=== PATIENT | female | born 1965 | race Caucasian/White ===

== ENCOUNTER 2025-06-25 13:19 | Outpatient (REF) | payer MEDICAID, SELFPAY ==
[2025-06-25 21:08] LABS: ALT 30 U/L (14-59); AST 26 U/L (15-37); Albumin 4.3 g/dL (3.4-5.0); Alkaline Phosphatase 39 U/L (46-116); Anion Gap 11.2 mmol/L (3-11); BUN 11 mg/dL (7-18); Bilirubin, Total 1.1 mg/dL (0.2-1.0); CO2 23.8 mmol/L (21.0-32.0); Calcium 8.9 mg/dL (8.5-10.1); Chloride 102 mmol/L (98-107); Estimated GFR 84.82 (mL/min/1.73m2); Glucose 96 mg/dL (74-106); Potassium 3.9 mmol/L (3.5-5.1); Sodium 137 mmol/L (136-145); TSH 1.50 uIU/mL (0.36-3.74); Total Protein 7.5 g/dL (6.4-8.2)
[2025-06-26 11:18] LABS: Calculated LDL 88 mg/dL (<100); Cholesterol 184 mg/dL (<200); HDL Cholesterol 85 mg/dL (>or=50); Triglyceride 57 mg/dL (<150)
== END 2025-06-25 13:20 | disposition home or self-care (01) ==
LOC: NCHCN 13:19
PROVIDERS: PCP Nurse Practitioner Family; Visit Provider Nurse Practitioner Family
DX: E78.5 Hyperlipidemia, unspecified (principal); E03.9 Hypothyroidism, unspecified
CPT/HCPCS: 80053; 80061; 84443

== ENCOUNTER 2025-07-09 15:29 | Outpatient (REF) | payer MEDICAID, SELFPAY ==
[2025-07-09 19:19] LABS: Abs Immature Grans 0.01 10^3/uL (0.0-0.06); ESR 3 mm/hr (0-30); HCT 39.8 % (36.0-46.0); HGB 13.6 g/dL (11.2-15.7); Immature Grans % 0.2 %; MCH 30.2 pg (27.0-33.0); MCHC 34.2 % (32.0-36.0); MCV 88 fL (80-95); MPV 9.3 fL (8.0-11.0); Platelet Count 202 10^3/uL (130-400); RBC 4.50 10^6/uL (3.93-5.22); RDW 12.8 % (11.7-14.6); RDW-SD 41.6 fL; WBC 5.18 10^3/uL (4.4-10.8)
== END 2025-07-09 15:30 | disposition home or self-care (01) ==
LOC: NCHCN 15:29
PROVIDERS: PCP Nurse Practitioner Family; Visit Provider Nurse Practitioner Family
DX: R91.8 Other nonspecific abnormal finding of lung field (principal)
CPT/HCPCS: 85652; 85025

== ENCOUNTER 2025-09-06 03:29 | Outpatient (CLI) | payer MEDICAID, SELFPAY ==
[2025-09-06] MEDS: Inhaler, Assist Device 1 EACH MC (09:08)
[2025-09-06] MEDS: Levalbuterol HFA 15 GM INH 4 PUFF IH (09:14)
--- NOTE | 2025-09-10 07:51 | W.PFT ---
Date of service: 09/06/25 Time of Service: 08:04 Pulmonary Function Test Result Indications: Pulmonary infiltrates Impression 1. Good patient effort was noted. ATS standards for reproducibility were met. 2. Normal spirometry. 3. Following the administration of a bronchodilator there was not a significant response 4. TLC was normal. No evidence of restrictive lung disease 5. DLCO was normal indicating normal alveolar gas exchange
== END 2025-09-06 03:30 | disposition home or self-care (01) ==
LOC: RT 03:29
PROVIDERS: PCP Nurse Practitioner Family; Visit Provider Internal Medicine Pulmonary Disease
DX: R91.8 Other nonspecific abnormal finding of lung field (principal)
CPT/HCPCS: 94060; 94726; 94729

== ENCOUNTER 2025-09-06 14:13 | Outpatient (CLI) | payer MEDICAID, SELFPAY ==
[2025-09-06 09:32] LABS: Abs Immature Grans 0.02 10^3/uL (0.0-0.06); HCT 40.7 % (36.0-46.0); HGB 14.0 g/dL (11.2-15.7); Immature Grans % 0.3 %; MCH 30.9 pg (27.0-33.0); MCHC 34.4 % (32.0-36.0); MCV 90 fL (80-95); MPV 8.6 fL (8.0-11.0); Platelet Count 184 10^3/uL (130-400); RBC 4.53 10^6/uL (3.93-5.22); RDW 13.2 % (11.7-14.6); RDW-SD 44.0 fL; WBC 6.11 10^3/uL (4.4-10.8)
[2025-09-06 09:36] LABS: ESR < 1 mm/hr (0-30)
[2025-09-06 10:17] LABS: C-Reactive Protein < 0.50 mg/dL (<or=0.5)
== END 2025-09-06 14:14 | disposition home or self-care (01) ==
LOC: LBO 14:13
PROVIDERS: PCP Nurse Practitioner Family; Visit Provider Internal Medicine Pulmonary Disease
DX: R91.8 Other nonspecific abnormal finding of lung field (principal); R06.00 Dyspnea, unspecified
CPT/HCPCS: 36415; 85652; 85025; 86038; 86140

== ENCOUNTER 2025-09-09 11:08 | Day surgery (SDC) | payer MEDICAID, SELFPAY ==
[2025-09-09] VITALS (19 sets, daily range): BP systolic 92–154; BP diastolic 63–114; PULSE 74–94; RESP 8–25; TEMP 36.2–36.6; O2SAT 88–100; BMI 32.0
[2025-09-09] MEDS: Lactated Ringers 1,000 ML 30 ML IV (11:58)
--- NOTE | 2025-09-09 12:15 | W.ANESPRE ---
General Info Date of Service Date Performed: 09/09/25 Height: 5 ft 2 in Weight: 79.379 kg Body Mass Index (BMI): 32.0 Surgical Procedure: Operation Date: 09/09/25 13:10 Proposed Procedure Side Surgeon p Bronchoscopy Luis Avery MD Actual Procedure Side Surgeon p Bronchoscopy Luis Avery MD Pre-Op Diagnosis Post-Op Diagnosis Pulmonary infiltrates Meds Allergies and Home Medications Allergies Allergy/AdvReac Type Severity Reaction Status Date / Time amoxicillin Allergy Intermediate rash Verified 09/09/25 11:43 Sulfa (Sulfonamide Allergy Intermediate rash or gi Verified 09/09/25 11:43 Antibiotics) Penicillins Allergy Unknown Other (See Verified 09/09/25 11:43 Comment) Home Medication ?Medication ?Instructions ?Recorded albuterol sulfate 90 mcg/actuation 2 puff inhalation Q6H PRN 10/19/24 aerosol inhaler shortness of breath or wheezing #6.7 grams atorvastatin 20 mg tablet 20 mg PO DAILY 10/19/24 inhalational spacing device #1 ea 10/19/24 (Aerochamber MV spacer) levothyroxine 75 mcg tablet 75 mcg PO DAILY 10/19/24 diazepam 5 mg tablet (Valium) 5 mg PO DAILY PRN 08/30/25 estradiol 0.1 mg/24 hr semiweekly 1 patch transdermal ONCE 08/30/25 transdermal patch (Lyllana) omeprazole 20 mg capsule,delayed 20 mg PO DAILY 08/30/25 release valacyclovir 1 gram tablet 1,000 mg PO BID PRN 08/30/25 bupropion HCl 300 mg 24 hr tablet, 300 mg PO .COMPLEX 09/03/25 extended release fluticasone propionate 50 1 spray intranasal DAILY PRN 09/03/25 mcg/actuation nasal spray,suspension (Allergy Relief (fluticasone)) Current Visit Medications: Current Medications Generic Name Dose Route Start Last Admin Trade Name Freq PRN Reason Stop Dose Admin Albuterol Sulfate 2.5 mg 09/09/25 06:00 Albuterol 2.5 Mg/3 Ml Inh Soln Vial UPD 09/09/25 16:00 DIRECTED DILCIA Ringer's Solution 1,000 mls @ 30 mls/hr 09/09/25 06:00 09/09/25 11:58 IV 09/09/25 23:59 30 mls/hr INFUSION DILCIA Administration IV Miscellaneous Supplies 1 each 09/09/25 06:00 Iv Access IV 09/09/25 23:59 DIRECTED DILCIA Lidocaine HCl 2 ml 09/09/25 06:00 Lidocaine 2% Pres-Free 2 Ml Vial IH 09/09/25 16:00 DIRECTED DILCIA Sodium Chloride 0 ml 09/09/25 06:00 Normal Saline Flush 10 Ml Syr IV 09/09/25 23:59 PRN PRN Sodium Chloride 0 ml 09/09/25 06:00 Normal Saline 10 Ml Vial IJ 09/09/25 23:59 DIRECTED PRN Sterile Water 0 ml 09/09/25 06:00 Water,Injection,Sterile 10 Ml Vial IJ 09/09/25 23:59 DIRECTED PRN PFSH Active Problems Active Problems: Problem Status Onset Code Pulmonary infiltrates Acute R91.8 Hypercholesterolemia Acute E78.00 Anxiety Chronic F41.9 Hypothyroidism Chronic E03.9 Panic disorder Acute F41.0 H/O gastroesophageal reflux (GERD) Acute Z87.19 Irritable bowel syndrome Chronic K58.9 Hyperlipemia Acute E78.5 Ground glass opacity present on imaging of lung Acute R91.8 Supraclavicular lymphadenopathy Acute R59.0 Mass in neck Acute R22.1 Menopausal flushing Acute N95.1 Obesity Chronic E66.9 Surgical History Surgical History H/O uterine ablation History of carpal tunnel surgery S/P right knee arthroscopy S/P left knee arthroscopy History of total abdominal hysterectomy History of bilateral ligation of fallopian tubes Tobacco Smoking/Tobacco Use Status: Former Tobacco Use Passive smoking exposure: No Alcohol Alcohol Intake: current Alcohol intake frequency: 0-2 drinks per day Alcohol type: wine Substance Use Substance use: Never Substance use type: does not use Vital Signs and Lab Results Vital Signs Most Recent Vital Signs in EMR: Most Recent Vital Signs Temp Pulse Resp BP Pulse Ox 36.2 C L 75 16 154/96 H 99 09/09/25 11:34 09/09/25 11:34 09/09/25 11:34 09/09/25 11:47 09/09/25 11:34 Lab Results Complete Blood Count: WBC, (4.4-10.8) 6.11 10^3/uL 09/06/25, 09:20 RBC, (3.93-5.22) 4.53 10^6/uL 09/06/25, 09:20 Hgb, (11.2-15.7) 14.0 g/dL 09/06/25, 09:20 Hct, (36.0-46.0) 40.7 % 09/06/25, 09:20 Plt Count, (130-400) 184 10^3/uL 09/06/25, 09:20 Complete Metabolic Panel: C-Reactive Protein, (<or=0.5) < 0.50 mg/dL 09/06/25, 09:20 Anesthesia Assessment and Plan Anesthesia History Personal History: No History of Anesthesia Complications Family History: No Family History of Anesthesia Complications Exercise Tolerance Exercise Tolerance: Metabolic Equivalents>4 Cardiac & Pulmonary Exam Cardiac Exam: Normal S1/S2 Heart Sounds Pulmonary Exam: Clear Bilateral Breath Sounds Implantable Cardiac Device Does patient have a Pacemaker or an ICD?: No Airway Exam Known Difficult Airway: No Mallampati Class: 2 Mouth Opening: Normal (> 3cm) Thyromental Distance: Greater than 3 cm Neck Range of Motion: Full ROM Neck Circumference: Normal Teeth Condition: Normal Dentition ASA Classification ASA Score: ASA 2 Emergency Case?: No NPO Status NPO Status: NPO Clears >2 hours, Solids >8 hours Anesthesia Plan Resuscitation Status: Full Code Anesthesia Technique: General Anesthesia Airway Planned: LMA Monitors Used: Standard Monitors Preoperative Comments:: 59 yo for bronch due to infiltrates Sig PMHx: RAD (albuterol - rare use), GERD (omeprazole. well controlled), hypothyroid (hypothyroid), anxiety. Former smoker. occ EtOH.
[2025-09-09] MEDS: Lidocaine 2% Pres-Free 2 ML VIAL IH (12:23)
[2025-09-09] MEDS: Albuterol 2.5 MG/3 ML INH SOLN VIAL UPD (12:23)
[2025-09-09] MEDS: Lidocaine 1% Pres-Free 5 ML VIAL (12:50)
--- NOTE | 2025-09-09 12:52 | PAPNONF_PTH ---
PATIENT: Sharifa Kathleen LOC: [facility] U#:[id number] AGE/SX: 59/F ROOM: RE09/09/[address]: Luis Avery : 1965 BED: DIS: 09/09/2025 SPEC #: [id number] RECD: 09/09/25 18:02 STATUS: ANGELINE REAlbino #: [id number] KYLEE: 09/09/25 12:[address]: Luis Avery DEPT: [facility] Cytology RECD BY: Lynette Cornelius ENTERED: 09/09/25 18:04 SP TYPE: ALLEN EPPERSON DR: Rea Felix Tissues: 1 - BODY FLUID CYTO(NOT S/U/N/EM)[facility] 2 - BODY FLUID CYTO(NOT S/U/N/EM)[facility] Procedures: BODY FLUID CYTO(NOT SPU/UR/NIP/ENDOM)[facility] Comments: [id number] (TV=10 ml BOTH SAMPLES, SENT FRESH) (REFRIGERATED)
--- NOTE | 2025-09-09 13:05 | W.PM.OP ---
Operative Note Operative Note PRE-OP DIAGNOSIS: Pulmonary infiltrates POST-OP DIAGNOSIS: same PROCEDURE: Bronchoscopy with BAL SURGEON: Luis Avery ANESTHESIA TYPE: General LMA/ETT (Under the direction the anesthesiology team and as per anesthesia record) Refer to Anesthesia Record PATHOLOGY: other (Bronchoalveolar lavage was obtained in the posterior segment of the PAVAN and posterior segment of the RUL. Samples were sent for bacterial/fungal/afb cultures, cell count, and cytopatholgy. Biopsies taken: none) Procedure Description: The risks (including bleeding, respiratory failure, and pneumothorax), benefits, and alternatives of the procedure were discussed with the patient and consent was obtained.? A Time Out was held and the above information confirmed. Following the induction of general anesthesia, the patient was ventilation through an LMA. The bronchoscope was passed through the LMA. The vocal cords were visualized and lidocaine was topically placed onto the cords. The cords were normal. The scope was then passed into the trachea.?Additional lidocaine was used topically.? A full endobronchial examination was performed.? There was diffuse mild-moderate, endobronchial erythema bilaterally. No endobronchial lesions or masses were seen. There were minimal, clear secretions bilaterally. 100 mL of saline was injected into the posterior segment of the RUL and ~20 mL was aspirated. 100 mL of saline was injected into the posterior segment of the PAVAN and ~ 25 mL was aspirated. The Patient was taken to the Endoscopy Recovery area in satisfactory condition. Date of Procedure: 09/09/25
--- NOTE | 2025-09-09 13:18 | W.ANESPOSTOP ---
Postoperative Evaluation Date, Time and Location Date Performed: 09/09/25 Time Performed: 13:18 Patient Location: PACU Vital Signs Most Recent Imported Vital Signs: Most Recent Vital Signs Temp Pulse Resp BP Pulse Ox 36.6 C 94 H 23 98/72 L 92 09/09/25 13:15 09/09/25 13:15 09/09/25 13:15 09/09/25 13:11 09/09/25 13:15 Pain Score Most Recent Pain Score: Most Recent Pain Score Pain Level 0 09/09/25 13:15 Assessment Mental Status: Awake (Alert & Oriented to Patient Baseline) Airway and Respiratory Function: Patent airway with normal (patient baseline) respiratory exam Cardiovascular Function: Hemodynamically Stable Hydration Status: Adequately Hydrated Nausea & Vomiting: No Nausea or Vomiting Pain: Pt. Denies Any Pain Peripheral Nerve Block: Patient did not receive a nerve block
[2025-09-09 22:14] LABS: Eosinophils Fluid Relative 1 % ((See Note)); Lymphocytes Fluid Relative 11 % ((See Note)); Mono/Macrophage Fluid Relative 57 % ((See Note)); Neutrophils Fluid Relative 10 % ((See Note)); Other Cells Fluid Relative 21 % ((See Note))
[2025-09-09 22:15] LABS: Lymphocytes Fluid Relative 3 % ((See Note)); Mono/Macrophage Fluid Relative 85 % ((See Note)); Neutrophils Fluid Relative 7 % ((See Note)); Other Cells Fluid Relative 5 % ((See Note))
== END 2025-09-09 14:14 | disposition home or self-care (01) ==
PROVIDERS: PCP Nurse Practitioner Family; Visit Provider Internal Medicine Pulmonary Disease
PROC: 0BJ08ZZ Inspection of Tracheobronchial Tree, Via Natural or Artificial Opening Endoscopic (ICD-10-PCS; CPT 31622; principal; 2025-09-09 13:00)
DX: R91.8 Other nonspecific abnormal finding of lung field (principal); K21.9 Gastro-esophageal reflux disease without esophagitis
CPT/HCPCS: 31624; 80162; 87070; 87102; 87116; 87205; 87206; 88104; 94640; J1100; J2003; J2405; J2704; J7613

== ENCOUNTER 2025-10-30 10:39 | Outpatient (REF) | payer BC, SELFPAY ==
[2025-10-30 15:05] LABS: ESR 3 mm/hr (0-30)
[2025-10-30 15:33] LABS: C-Reactive Protein < 0.50 mg/dL (<=0.50)
[2025-10-30 15:40] LABS: Creatine Kinase 57 U/L (34-145)
[2025-10-31 12:13] LABS: RNP Ab, IgG <6.0 CU (<20.0); Ro60 Ab, IgG <7.0 CU (<20.0); SS-A/Ro, IgG <2.3 CU (<20.0); SS-B (La) Ab, IgG <3.3 CU (<20.0)
[2025-10-31 18:53] LABS: Centromere Ab, IgG <0.2 U (<1.0 (Neg)); JO 1 Ab, IgG <0.2 U; Scl 70 Antibodies, IgG <0.2 U; Sm (Smith) Ab, IgG <0.2 U
== END 2025-10-30 10:40 | disposition home or self-care (01) ==
LOC: LBN 10:39
PROVIDERS: PCP Nurse Practitioner Family; Visit Provider Internal Medicine Pulmonary Disease
DX: R91.8 Other nonspecific abnormal finding of lung field (principal); R06.00 Dyspnea, unspecified
CPT/HCPCS: 82550; 85652; 86200; 83520; 86140; 86225; 86235